=== PATIENT | female | born 1995 | race American Indian/Alaskan Native ===

== ENCOUNTER 2017-12-25 23:38 | Emergency (ER) | payer MEDICAID ==
[2017-12-26 00:40] VITALS: BP 106/54
== END 2017-12-26 02:30 | disposition left against medical advice (07) ==
LOC: ED 23:38
DX: N93.9 Abnormal uterine and vaginal bleeding, unspecified (principal); Z53.21 Procedure and treatment not carried out due to patient leaving prior to being seen by health care provider
CPT/HCPCS: 36415; 84702